=== PATIENT | female | born 1980 | race Caucasian/White ===

== ENCOUNTER 2016-12-28 09:26 | Outpatient (CLI) | payer OTHER ==
[~2016-12-28] VITALS: Ht 170.2 cm; Wt 81.8 kg
[~2016-12-28 09:26] MED LIST: PREN1CAP PO
[2016-12-28] MEDS ORDERED: DIPHENHYDRAMINE 25 MG CAPSULE ONE (10:54)
[2016-12-28] MEDS ORDERED: OXYcodone/APAP 5/325MG TABLET ONE (10:55)
[2016-12-28] MEDS ORDERED: DIPHENHYDRAMINE 50 MG CAPSULE PO PRN (11:00)
[2016-12-28] MEDS ORDERED: OXYcodone/APAP 5/325MG TABLET PO PRN (11:00)
[2017-01-01] MEDS ORDERED: FERR324T8 PO (12:11)
[2017-01-01] MEDS ORDERED: IBUP-1222 PO (12:12)
== END 2016-12-28 11:12 | disposition home or self-care (01) ==
LOC: LDOP 09:26
PROVIDERS: ATTEND Obstetrics & Gynecology
DX: O48.0 Post-term pregnancy (principal); R10.9 Unspecified abdominal pain; Z3A.41 41 weeks gestation of pregnancy
CPT/HCPCS: 59025; 99211; G0463